=== PATIENT | male | born 1995 | race Caucasian/White ===

== ENCOUNTER 2018-06-19 04:09 | Emergency (ER) | payer BC ==
[2018-06-19 04:18] VITALS: O2SAT 98
[2018-06-19 05:06] LABS: BASOPHIL % 0.4 % (0.0-0.4); Basophil (Absolute #) 0.03 (0-0.4); Eosinophil % 4.9 % (0.00-5.0); Eosinophil (Absolute #) 0.35 (0-0.5); Granulocyte Absolute (ANC) 4.94 (1.4-6.9); Granulocytes % 68.5 % (36.0-66.0); Hematocrit 49.7 % (42-50); Hemoglobin 16.9 gm/dl (12.5-18.0); Lymphocyte (Absolute #) 1.33 (1.0-4.6); Lymphocytes % 18.4 % (24.0-44.0); Mean Cell Volume 87.7 fl (78-100); Mean Corpuscular Hemoglobin 29.8 pg (26-32); Mean Platelet Volume 9.7 fl (6-9.5); Monocyte (Absolute #) 0.56 (0.0-1.3); Monocytes % 7.8 % (0.0-12.0); Platelet Count 308 K/mm3 (150-450); Red Blood Count 5.67 M/mm3 (4.1-5.6); Red Cell Distribution Width 13.7 % (11.5-14.0); White Blood Count 7.2 K/mm3 (4.0-10.5)
[2018-06-19 05:09] LABS: ACETAMINOPHEN < 10 ug/ml (10-30); ANION GAP 21.7 MEQ/L (5-15); BLOOD UREA NITROGEN 6 mg/dL (9-20); CHLORIDE 106 mmol/L (98-107); Calcium 9.6 mg/dL (8.4-10.2); Carbon Dioxide 23 mmol/L (22-30); Creatinine 1 0.97 mg/dL (0.66-1.25); Glucose 94 mg/dL (74-106); Potassium 3.6 mmol/L (3.5-5.1); SALICYLATE < 1.0 mg/dL (2-20); SODIUM 147 mmol/L (137-145)
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
[2018-06-19 05:42] LABS: Amphetamine,Urine NEGATIVE (NEGATIVE); Barbiturate,Urine NEGATIVE (NEGATIVE); Benzodiazepine,Urine NEGATIVE (NEGATIVE); Cocaine,Urine NEGATIVE (NEGATIVE); Methadone,Urine NEGATIVE (NEGATIVE); Opiate,Urine NEGATIVE (NEGATIVE); PCP,Urine NEGATIVE (NEGATIVE); THC,Urine NEGATIVE (NEGATIVE)
[2018-06-19 05:56] VITALS: BP 163/100; PULSE 98
== END 2018-06-19 05:55 | disposition home or self-care (01) ==
LOC: ED 04:09
DX: F10.129 Alcohol abuse with intoxication, unspecified (principal); Z02.89 Encounter for other administrative examinations
CPT/HCPCS: 36415; 80048; 80307; 85025; 93005; 99284; G0481; G0480

== ENCOUNTER 2021-03-07 18:22 | Emergency (ER) | payer BC ==
[2021-03-07] MEDS ORDERED: TORAdol 30 mg Injection ONE ×2 (18:41→18:42)
[2021-03-07] MEDS ORDERED: Augmentin 875-125 Tablet ONE (18:41)
[2021-03-07] MEDS: TORAdol 30 mg Injection IM ONE (18:42)
[2021-03-07] MEDS: Augmentin 875-125 Tablet PO ONE (18:43)
--- NOTE | 2021-03-07 18:44 | ERPHSYRPT ---
- History of Present Illness Patient Subjective Stated Complaint: Pt c/o of marlena swollen jaws from what he thinks is abscesses inside his mouth, pt is seeing the dentist on Friday Triage Nursing Assessment: Pt brought to the ER by his aunt, hypertensive, rates pain as 5/10, marlena jaws swollen, has dentist appt on Friday, taking brothers [place] 5/325, inside of mouth is swollen, no difficulty with swallowing, denies any other issues at this time Allergies/Adverse Reactions: No Known Drug Allergies Allergy (Verified 03/07/21 18:33) Home Medications: No Reportable Medications [No Reported Medications] 06/19/18 [History] Hx Tetanus, Diphtheria Vaccination/Date Given: Yes Hx Influenza Vaccination/Date Given: No Hx Pneumococcal Vaccination/Date Given: No Travel Risk - International Travel Have you traveled outside of the country in past 3 weeks: No - Coronavirus Screening Are you exhibiting any of the following symptoms?: No Close contact with a COVID-19 positive Pt in past 14-21 Days: No - Vaccine Status Have you recieved a Covid-19 vaccination: No - Past Medical History Pertinent Past Medical History: No Neurological History: No Pertinent History ENT History: No Pertinent History Cardiac History: No Pertinent History Respiratory History: No Pertinent History Endocrine Medical History: No Pertinent History Musculoskeletal History: No Pertinent History GI Medical History: No Pertinent History History: No Pertinent History Psycho-Social History: No Pertinent History Male Reproductive Disorders: No Pertinent History - Past Surgical History Past Surgical History: No Neuro Surgical History: No Pertinent History Cardiac: No Pertinent History Respiratory: No Pertinent History Gastrointestinal: No Pertinent History Genitourinary: No Pertinent History Musculoskeletal: No Pertinent History Male Surgical History: No Pertinent History - Social History Smoking Status: Former smoker How long have you smoked: 4 yrs Exposure to second hand smoke: Yes Drug Use: none Patient Lives Alone: No - Nursing Vital Signs Nursing Vital Signs: Initial Vital Signs Temperature 98.2 F 03/07/21 18:26 Pulse Rate 81 03/07/21 18:26 Blood Pressure 148/104 03/07/21 18:26 O2 Sat by Pulse Oximetry 99 03/07/21 18:26 Pain Scale Pain Intensity 5 - Physical Exam SpO2: 99 Ordered Tests: Medication Summary Discontinued Medications Generic Name Dose Route Start Last Admin Trade Name Freq PRN Reason Stop Dose Admin Amoxicillin/Clavulanate Potassium 875 mg 03/07/21 18:39 Amox Tr/Potassium Clavulanate 875 Mg Tablet PO 03/07/21 18:40 STAT ONE Ketorolac Tromethamine 60 mg 03/07/21 18:40 Ketorolac Tromethamine 30 Mg/Ml Inj IM 03/07/21 18:41 STAT ONE - Departure Departure Disposition: Home Clinical Impression: Dental abscess, Carious teeth, Pain, dental Condition: Stable Critical Care Time: No Referrals: DOCTOR,NO FAMILY [Primary Care Provider] - Follow up/PCP as directed GEORGE RUST MD [ACTIVE STAFF] - Follow up/PCP as directed Additional Instructions: Discharge/Care Plan RUFUS HANSON was seen on 03/07/21 in the Emergency Room. The patient was counseled regarding Diagnosis,Lab results, Imaging studies, need for follow up and when to return to the Emergency Room. Prescriptions given: Discharge Note I have spoken with the patient and/or caregivers. I have explained the patient's condition, diagnosis and treatment plan based on the information available to me at this time. I have answered the patient's and/or caregiver's questions and addressed any concerns. The patient and/or caregivers have as good understanding of the patient's diagnosis, condition and treatment plan as can be expected at this point. The vital signs have been stable. The patient's condition is stable and appropriate for discharge from the emergency department. The patient will pursue further outpatient evaluation with the primary care physician or other designated or consulting physician as outlined in the discharge instructions. The patient and/or caregivers are agreeable to this plan of care and follow-up instructions have been explained in detail. The patient and/or caregivers have received these instruction. The patient/and or caregivers are aware that any significant change in condition or worsening of symptoms should prompt an immediate return to this or the closest emergency department or call 911.
--- NOTE | 2021-03-07 18:53 | ERPHSYRPT ---
- History of Present Illness Time Seen by Provider: 03/07/21 18:30 Source: patient Exam Limitations: no limitations Patient Subjective Stated Complaint: Pt c/o of marlena swollen jaws from what he thinks is abscesses inside his mouth, pt is seeing the dentist on Friday Triage Nursing Assessment: Pt brought to the ER by his aunt, hypertensive, rates pain as 5/10, marlena jaws swollen, has dentist appt on Friday, taking brothers [place] 5/325, inside of mouth is swollen, no difficulty with swallowing, denies any other issues at this time Physician History: Patient is a 26-year-old male presents to our ED with complaints of bilateral lower jaw swelling. Patient has carious teeth. Patient believes he is experiencing a dental abscess. Symptoms have been ongoing for the last several days. Pain currently rated 5 out of 10. Patient took his brothers [place] pill prior to arrival. Pain has improved. No trauma. No fever. No headache. No neck pain. No chest pain or shortness of breath. Symptoms are moderate in inte nsity. Percussion to the involved teeth reproduce symptoms. Patient otherwise voices no other complaints or concerns at this time. Patient states he has an appointment scheduled with his dentist on Friday next week Timing/Duration: yesterday Severity: moderate Modifying Factors: Improves With: other (Mastication reproduces symptoms.) Associated Symptoms: denies symptoms Allergies/Adverse Reactions: No Known Drug Allergies Allergy (Verified 03/07/21 18:33) Hx Tetanus, Diphtheria Vaccination/Date Given: Yes Hx Influenza Vaccination/Date Given: No Hx Pneumococcal Vaccination/Date Given: No Travel Risk - International Travel Have you traveled outside of the country in past 3 weeks: No - Coronavirus Screening Are you exhibiting any of the following symptoms?: No Close contact with a COVID-19 positive Pt in past 14-21 Days: No - Vaccine Status Have you recieved a Covid-19 vaccination: No - Review of Systems Constitutional: No Symptoms, No Fever, No Chills Eyes: No Symptoms Ears, Nose, & Throat: No Symptoms Respiratory: No Symptoms, No Cough, No Dyspnea Cardiac: No Symptoms, No Chest Pain, No Edema, No Syncope Abdominal/Gastrointestinal: No Symptoms, No Abdominal Pain, No Nausea, No Vomiting, No Diarrhea Genitourinary Symptoms: No Symptoms, No Dysuria Musculoskeletal: No Symptoms, No Back Pain, No Neck Pain Skin: No Symptoms, No Rash Neurological: No Symptoms, No Dizziness, No Focal Weakness, No Sensory Changes Psychological: No Symptoms Endocrine: No Symptoms Hematologic/Lymphatic: No Symptoms Immunological/Allergic: No Symptoms All Other Systems: Reviewed and Negative - Past Medical History Pertinent Past Medical History: No Neurological History: No Pertinent History ENT History: No Pertinent History Cardiac History: No Pertinent History Respiratory History: No Pertinent History Endocrine Medical History: No Pertinent History Musculoskeletal History: No Pertinent History GI Medical History: No Pertinent History History: No Pertinent History Psycho-Social History: No Pertinent History Male Reproductive Disorders: No Pertinent History - Past Surgical History Past Surgical History: No Neuro Surgical History: No Pertinent History Cardiac: No Pertinent History Respiratory: No Pertinent History Gastrointestinal: No Pertinent History Genitourinary: No Pertinent History Musculoskeletal: No Pertinent History Male Surgical History: No Pertinent History - Social History Smoking Status: Former smoker How long have you smoked: 4 yrs Exposure to second hand smoke: Yes Drug Use: none Patient Lives Alone: No - Nursing Vital Signs Nursing Vital Signs: Initial Vital Signs Temperature 98.2 F 03/07/21 18:26 Pulse Rate 81 03/07/21 18:26 Blood Pressure 148/104 03/07/21 18:26 O2 Sat by Pulse Oximetry 99 03/07/21 18:26 Pain Scale Pain Intensity 5 - Physical Exam General Appearance: no apparent distress, alert Eye Exam: PERRL/EOMI, eyes nml inspection Ears, Nose, Throat Exam: normal ENT inspection, TMs normal, pharynx normal, moist mucous membranes, other (Carious teeth throughout. Dental abscesses at tooth #20 and tooth #30. No sublingual masses. No Jason's angina. Uvula at midline. No trismus. No intraoral lesions. Patient tolerating oral secretions well. No neck masses) Neck Exam: normal inspection, non-tender, supple, full range of motion Respiratory Exam: normal breath sounds, lungs clear, airway intact, No respiratory distress Cardiovascular Exam: regular rate/rhythm, normal heart sounds, normal peripheral pulses Gastrointestinal/Abdomen Exam: soft, normal bowel sounds, No tenderness, No mass Back Exam: normal inspection, normal range of motion, No CVA tenderness, No vertebral tenderness Extremity Exam: normal inspection, normal range of motion, pelvis stable Neurologic Exam: alert, oriented x 3, cooperative, normal mood/affect, sensation nml, No motor deficits Skin Exam: normal color, warm, dry, No rash Lymphatic Exam: No adenopathy SpO2 Interpretation: normal SpO2: 99 O2 Delivery: Room Air - Course Nursing assessment & vital signs reviewed: Yes Ordered Tests: Medication Summary Discontinued Medications Generic Name Dose Route Start Last Admin Trade Name [place] PRN Reason Stop Dose Admin Amoxicillin/Clavulanate Potassium 875 mg 03/07/21 18:39 03/07/21 18:43 Amox Tr/Potassium Clavulanate 875 Mg Tablet PO 03/07/21 18:40 875 mg STAT ONE Administration Amoxicillin/Clavulanate Potassium Confirm 03/07/21 18:41 Amox Tr/Potassium Clavulanate 875 Mg Tablet Administered 03/07/21 18:42 Dose 875 mg .ROUTE .STK-MED ONE Ketorolac Tromethamine 60 mg 03/07/21 18:40 03/07/21 18:42 Ketorolac Tromethamine 30 Mg/Ml Inj IM 03/07/21 18:41 60 mg STAT ONE Administration Ketorolac Tromethamine Confirm 03/07/21 18:41 Ketorolac Tromethamine 30 Mg/Ml Inj Administered 03/07/21 18:42 Dose 30 mg .ROUTE .STK-MED ONE Ketorolac Tromethamine Confirm 03/07/21 18:42 Ketorolac Tromethamine 30 Mg/Ml Inj Administered 03/07/21 18:43 Dose 30 mg .ROUTE .STK-MED ONE - Progress Progress: improved Progress Note: Patient has bilateral dental abscesses at tooth #20 and tooth #30. Patient received a dose of Augmentin and Toradol in our ED. A written prescription for Toradol was provided to patient. A prescription for for Augmentin was forwarded to patient's pharmacy. Patient currently has an appointment scheduled with his dentist for Friday next week. Pain improved. Patient states is ready for discharge. He voices no other complaints or concerns at this time. Portions of this note were created with voice recognition technology. There may be grammatical, spelling, punctuation or sound alike errors 03/07/21 18:50 Counseled pt/family regarding: diagnosis, need for follow-up - Departure Departure Disposition: Home Clinical Impression: Dental abscess, Carious teeth, Pain, dental Condition: Stable Critical Care Time: No Referrals: GEORGE RUST MD [ACTIVE STAFF] - Follow up/PCP as directed DOCTOR,NO FAMILY [Primary Care Provider] - Follow up/PCP as directed Additional Instructions: Discharge/Care Plan RUFUS HANSON was seen on 03/07/21 in the Emergency Room. The patient was counseled regarding Diagnosis,Lab results, Imaging studies, need for follow up and when to return to the Emergency Room. Prescriptions given: Discharge Note I have spoken with the patient and/or caregivers. I have explained the patient's condition, diagnosis and treatment plan based on the information available to me at this time. I have answered the patient's and/or caregiver's questions and addressed any concerns. The patient and/or caregivers have as good understanding of the patient's diagnosis, condition and treatment plan as can be expected at this point. The vital signs have been stable. The patient's condition is stable and appropriate for discharge from the emergency department. The patient will pursue further outpatient evaluation with the primary care physician or other designated or consulting physician as outlined in the discharge instructions. The patient and/or caregivers are agreeable to this plan of care and follow-up instructions have been explained in detail. The patient and/or caregivers have received these instruction. The patient/and or caregivers are aware that any significant change in condition or worsening of symptoms should prompt an immediate return to this or the closest emergency department or call 911. Prescriptions: Amox Tr/Potass Clav. 875 mg [Augmentin 875-125 Tablet] 875 mg PO BID 7 Days #14 tablet
[2021-03-07 19:01] VITALS: BP 159/98; PULSE 80; O2SAT 96
== END 2021-03-07 19:00 | disposition home or self-care (01) ==
LOC: ED 18:22
DX: K04.7 Periapical abscess without sinus (principal); K02.9 Dental caries, unspecified
CPT/HCPCS: 96372; 99283; J1885; A9270-GY